=== PATIENT | male | born 1950 | race Caucasian/White ===

== ENCOUNTER → 2018-09-18 13:36 | Outpatient (CLI) | payer MEDICARE, OTHER, SELFPAY ==
--- NOTE | 2018-09-18 | DI.MRI.S_ITS ---
PROCEDURE: MR KNEE LT WO CON INDICATIONS: OSTEOARTHRITIS OF LEFT KNEE TECHNIQUE: Noncontrast sagittal PD fast spin echo and T2 fast spin echo with fat saturation, sagittal 3-D FLASH with fat saturation; coronal T1 spin echo and PD fast spin echo with fat saturation, and axial PD fast spin echo with fat saturation through the knee. COMPARISON: None. FINDINGS: Image quality: Excellent. Menisci: The medial and lateral menisci demonstrate normal morphology and internal signal. The meniscal root ligaments appear intact. Cruciate ligaments: There is marked intrasubstance signal change throughout the anterior cruciate ligament in keeping with high-grade partial rupture. Differential includes advanced mucoid degeneration. The posterior cruciate ligament appears intact. Medial structures: The medial collateral ligament appears intact. The posterior oblique ligament, semimembranosus tendon insertions, oblique popliteal ligament, and meniscocapsular junction appear intact. Visualized portions of the pes anserinus tendons appear normal. No abnormal bursal fluid. Lateral structures: The lateral collateral ligament, long and short heads of the biceps femoris tendon appear intact. The popliteus tendon appears normal; the popliteofibular ligament appears intact. The posterosuperior and anteroinferior popliteomeniscal fascicles appear intact. The arcuate and fabellofibular ligaments appear intact, on either side of the lateral inferior geniculate artery. Iliotibial band appears normal. Anterior structures: The quadriceps and patellar tendons appear intact. Patellar alignment is normal. No femoral trochlear dysplasia or ventral trochlear prominence. No edema in the infrapatellar fat pad. Prepatellar and superficial infrapatellar subcutaneous edema/fluid. There is discontinuous appearance of the lateral patellofemoral ligament, for example image 7 series 5, suggesting rupture. Bones and cartilage: No bone marrow contusions or fractures. The cartilage of the medial and lateral femorotibial compartments, as well as the patellofemoral compartment, appears normal in thickness. Joint space: Moderate joint effusion. Finch's cyst is seen measuring approximately 8 cm in the cephalocaudad dimension. No specific evidence for intra-articular loose body identified. IMPRESSION: Marked intrasubstance signal change involving the anterior cruciate ligament which could represent age indeterminate high-grade partial rupture, or alternatively advanced mucoid degeneration. Rupture of the mid segment of the lateral patellofemoral ligament. This finding also technically age indeterminate. Moderate joint effusion. Large Finch cyst. Dictated by: Travis Tsai M.D. on 09/18/2018 at 14:44 Approved by: Travis Tsai M.D. on 09/18/2018 at 14:50
== END ==
PROVIDERS: PCP Family Medicine; Visit Provider Orthopaedic Surgery
DX: M17.12 Unilateral primary osteoarthritis, left knee (principal); M25.462 Effusion, left knee; S76.112A Strain of left quadriceps muscle, fascia and tendon, initial encounter; M71.22 Synovial cyst of popliteal space [Baker], left knee
CPT/HCPCS: 73721

== ENCOUNTER → 2018-12-04 16:19 | Outpatient (CLI) | payer MEDICARE, OTHER, SELFPAY ==
--- NOTE | 2018-12-04 | DI.MRI.S_ITS ---
PROCEDURE: MR SHOULDER RT WO CON INDICATIONS: Anterior right shoulder pain post lifting injury TECHNIQUE: Noncontrast oblique coronal T2 fast spin echo with fat saturation, oblique sagittal T1 spin echo and T2 fast spin echo with fat saturation, axial T1 spin echo and T2 fast spin echo with fat saturation through the shoulder. COMPARISON: [facility] [place], CR, XR SHOULDER 2+ VIEWS RIGHT, 11/22/2018, 14:48. FINDINGS: Image quality: Excellent. Rotator cuff: There is full-thickness tearing of the entire supraspinatus tendon, which demonstrates medial retraction and atrophy. There is full-thickness tearing of the entire infraspinatus tendon, which demonstrates medial retraction and moderate T2 signal elevation within the muscle belly. Teres minor is intact. Subscapularis tendon demonstrates low-grade partial thickness articular surface tearing of the superior aspect of the humeral insertion site. Bones and bursae: No bone marrow contusions or fractures. Articular osteophyte formation at the glenohumeral and acromioclavicular joints. Superior subluxation of the humeral head. There is moderate acromioclavicular joint degeneration. The acromion demonstrates conventional anatomy, without an os acromiale. No pathologic subacromial-subdeltoid or subcoracoid bursal fluid is present. Capsule and soft tissues: There is diffuse fraying of the glenoid labrum. The long head of the biceps tendon demonstrates normal location and morphology. The rotator interval appears normal, without fibrosis. The coracohumeral ligament is normal in thickness. IMPRESSION: 1. Full-thickness tearing of the supraspinatus and infraspinatus tendons. There is medial retraction and atrophy of the supraspinatus. 2. Acromioclavicular joint osteoarthritis. 3. Diffuse degenerative fraying of the glenoid labrum. Dictated by: Mitch Cerna M.D. on 12/04/2018 at 16:58 Approved by: Mitch Cerna M.D. on 12/04/2018 at 17:00
== END ==
PROVIDERS: PCP Family Medicine; Visit Provider Orthopaedic Surgery
DX: S46.011A Strain of muscle(s) and tendon(s) of the rotator cuff of right shoulder, initial encounter (principal); M19.011 Primary osteoarthritis, right shoulder; X50.9XXA Other and unspecified overexertion or strenuous movements or postures, initial encounter
CPT/HCPCS: 73221

== ENCOUNTER → 2023-07-05 10:49 | Outpatient (CLI) | payer OTHER, SELFPAY ==
--- NOTE | 2023-07-05 10:52 | DI.CT.S_ITS ---
PROCEDURE: CT LUNG LOW DOSE SCREENING INDICATIONS: Lung cancer screening TECHNIQUE: Noncontrast 2.0-2.5 mm thick sections acquired from the pulmonary apices to the posterior costophrenic angles. 7 mm thick axial MIP, and 5 mm coronal and sagittal reformats were then acquired. For radiation dose reduction, the following was used: automated exposure control, adjustment of mA and/or kV according to patient size. COMPARISON: None. FINDINGS: Image quality: Diagnostic. Lower Neck: No enlarged lymph nodes. Thyroid: No thyroid nodules which require sonographic follow up, per consensus guidelines. Axillae: No enlarged lymph nodes. Chest Wall: Unremarkable. Bones: Degenerative changes of the spine with scoliosis Lungs and Pleura: No pneumothorax or pleural effusions. No consolidation or suspicious nodules. Heart: Heart size is normal. No pericardial effusion. Severe coronary calcifications. Thoracic Vessels: Tortuosity of the descending thoracic aorta. Mediastinum and Jasmin: No enlarged lymph nodes. z Esophagus: No wall thickening. No hiatal hernia. Upper Abdomen: Visualized upper abdomen solid organs and bowel loops appear normal. IMPRESSION: No suspicious pulmonary nodules. LUNG-RADS 2; continued annual screening, if eligible. Clinically Significant Non-pulmonary Findings: S-shaped scoliosis with DJD of the spine Dictated by: Zuhair Nguyen M.D. on 07/05/2023 at 16:04 Approved by: Zuhair Nguyen M.D. on 07/05/2023 at 16:13
== END ==
PROVIDERS: Referring Provider Nurse Practitioner Primary Care; Visit Provider Nurse Practitioner Primary Care
DX: Z12.2 Encounter for screening for malignant neoplasm of respiratory organs (principal); Z87.891 Personal history of nicotine dependence; I25.10 Atherosclerotic heart disease of native coronary artery without angina pectoris; M41.9 Scoliosis, unspecified
CPT/HCPCS: 71271

== ENCOUNTER → 2023-08-03 10:06 | Outpatient (CLI) | payer OTHER, SELFPAY ==
--- NOTE | 2023-08-03 10:07 | DI.US.S_ITS ---
PROCEDURE: US ABD AORTA ANEURYSM SCREEN INDICATIONS: Screening for cardiovascular disorders TECHNIQUE: Real time scanning was performed of the aorta and iliac arteries, with image documentation. COMPARISON: None. FINDINGS: Aorta: Proximal aortic diameter measures 2.8 cm. Mid-aorta measures 2.2 cm. Distal aortic diameter is 1.7 cm. Iliac arteries: Right common iliac artery measures 0.8 cm. Left common iliac artery measures 0.8 cm. IMPRESSION: Abdominal aortic ectasia. 5 year sonographic surveillance recommended. Dictated by: Gloria Celaya M.D. on 08/03/2023 at 11:16 Approved by: Gloria Celaya M.D. on 08/03/2023 at 11:17
== END ==
PROVIDERS: Referring Provider Nurse Practitioner Primary Care; Visit Provider Nurse Practitioner Primary Care
DX: Z13.6 Encounter for screening for cardiovascular disorders (principal); I77.811 Abdominal aortic ectasia; Z87.891 Personal history of nicotine dependence
CPT/HCPCS: 76706

== ENCOUNTER 2025-02-20 07:11 | Day surgery (SDC) | payer MEDICARE, OTHER, SELFPAY ==
[2025-02-15 14:29] VITALS: BMI 29.0
--- NOTE | 2025-02-20 | PATH_ITS ---
[facility] Accession Number: [id number] No. of containers..01 Tissue . 01 Material submitted: . colon - SIGMOID POLYP AT 15CM . 01 Diagnosis: SIGMOID POLYP AT 15CM: Hyperplastic polyp. [facility] 02/25/2025 1520 Local . 01 Electronically signed: . Pio Medina MD, Pathologist NPI- [id number] . 01 Gross description: . Received in formalin with two identifiers and sigmoid polyp at 15 cm, is a single sloan soft tissue fragment 0.6 cm in greatest dimension. Submitted entirely in cassette A1. ([id number]) /KITTY 02/25/2025 1520 Local . 01 Pathologist provided ICD-10: K63.5 . 01 CPT . 184905 Specimen Comment: A courtesy copy of this report has been sent to [facility] Performed at: 01 [facility] [address] [address], [place], [place] [id number] MD Pio Medina MD Phone: [phone]
--- NOTE | 2025-02-20 07:04 | PM.PREOP ---
Pre-operative Note Interval Note History & Physical reviewed/Exam performed by Physician: Yes Changes to H&P: No ASA Class (for procedural sedation): II
[2025-02-20 07:37] VITALS: BP 159/90; PULSE 89; RESP 18; TEMP 36.2; O2SAT 95
[2025-02-20] MEDS: LACTATED RINGERS 1,000 ML 42 ML IV (07:51)
--- NOTE | 2025-02-20 08:08 | P.OP.COLON_ITS ---
Operative Date/Time/Diagnoses Date of procedure: 02/20/25 Time of procedure: 08:31 Pre-op diagnosis: Screening colonoscopy Post-op diagnosis: other (polyp, internal hemorrhoids) Procedure & Clinicians Study performed: Colonoscopy with polypectomy Same procedure(s) as scheduled: Yes Indications: 75yo M, change in bowel habits, diarrhea Surgeon: Cole Eddy Anesthesia Type: MAC +/- Procedure Notes SCOAP/Timeout: Performed Procedure in detail: Colonoscopy Patient placed in left lateral recumbent position. Time out was performed. Procedural sedation was administered by anesthesia. Examination began with a thorough inspection of the perianal area. There was no evidence of fissures, fistulae, external hemorrhoids or cutaneous malignancy. The colonoscope was then placed into the rectum and the lumen was insufflated with carbon dioxide. The scope was carefully advanced forward. Ultimately the cecum was intubated and confirmed by identification of the ileocecal valve, the appendiceal orifice and the confluence of the taenia. The scope was then slowly withdrawn examining the colon thoroughly in all directions. In the rectum, retroflexion of the scope was performed for inspection of the distal rectum and anal canal. ?Significant colonoscopy findings: ?1. Quality of the preparation-poor, [place] 1-2, improved with irrigation/suction, small lesions could be missed ?2. 3mm, sessile, benign appearing, polyp 15cm, sigmoid, removed with cold snare and retrieved for pathology 3. Large columns of internal hemorrhoids, would be candidates for banding if he has symptoms 4. Sigmoid diverticulosis, wide mouth, extensive in sigmoid Scope withdrawal time: 6 minutes Findings: divertiulosis and internal hemorrhoids Estimated Blood Loss: 5 Complications: none Impression: Sigmoid polyp Diverticulosis Internal hemorrhoids Post-procedure Recommendations: Colonoscopy in 10 years Plan for aftercare: PACU then home Follow up: as needed Disposition: PACU
[2025-02-20 08:30] VITALS: BP 130/65; PULSE 83; RESP 20; TEMP 36.9; O2SAT 93
[2025-02-20 08:37] VITALS: BP 130/66; PULSE 90; RESP 20; TEMP 36.9; O2SAT 94
[2025-02-20 08:56] VITALS: BP 136/76; PULSE 85; RESP 18; TEMP 36.9; O2SAT 95
== END 2025-02-20 09:24 | disposition home or self-care (01) ==
PROVIDERS: PCP Student in an Organized Health Care Education/Training Program; Referring Provider Surgery; Visit Provider Surgery
PROC: 0DJD8ZZ Inspection of Lower Intestinal Tract, Via Natural or Artificial Opening Endoscopic (ICD-10-PCS; CPT 45378; principal; 2025-02-20 08:15)
DX: R19.4 Change in bowel habit (principal); Z87.891 Personal history of nicotine dependence; K64.8 Other hemorrhoids; K63.5 Polyp of colon
CPT/HCPCS: 45385; J2704; J7120